=== PATIENT | male | born 1950 | race Caucasian/White ===

== ENCOUNTER 2018-08-06 17:18 | Emergency (ER) | payer BC ==
[2018-08-06 18:42] VITALS: BP 150/68
[2018-08-06] MEDS ORDERED: Albuterol 2.5 MG/3 ML NEB.SOL* (0.083%) INH ONE (18:42)
--- NOTE | 2018-08-06 18:42 | UC ---
General HPI - HPI Summary HPI Summary: PT C/O COUGH WITH CHEST CONGESTION AND SOME ORTIZ. IT BEGAN ABOUT 6 WEEKS AGO WITH A HEAD COLD THAT MOVED INTO HIS CHEST. THE HEAD COLD RESOLVED BUT HE HAS ONGOING CHEST SYMPTOMS. HE DENIES CP, ASTHMA AND COPD - History of Current Complaint Chief Complaint: UCRespiratory Stated Complaint: CONGESTION,SOB,COUGH,ST Time Seen by Provider: 08/06/18 18:34 Hx Obtained From: Patient Onset/Duration: Gradual Onset Timing: Constant Pain Intensity: 0 Associated Signs & Symptoms: Negative: Chest Pain, Fever - Allergy/Home Medications Allergies/Adverse Reactions: Allergies Allergy/AdvReac Type Severity Reaction Status Date / Time No Known Allergies Allergy Verified 08/06/18 17:48 Home Medications: Home Medications NK [No Home Medications Reported] 08/06/18 [History Confirmed 08/06/18] PMH/Surg Hx/FS Hx/Imm Hx - Additional Past Medical History Additional PMH: HEART MURMUR, RETINAL DETACHMENT - Surgical History Surgical History: Yes Surgery Procedure, Year, and Place: Retinal detachement - Family History Known Family History: Positive: Non-Contributory - Social History Alcohol Use: None Substance Use Type: None Smoking Status (MU): Never Smoked Tobacco Review of Systems All Other Systems Reviewed And Are Negative: Yes Constitutional: Positive: Negative Skin: Positive: Negative Eyes: Positive: Negative ENT: Positive: Negative Respiratory: Positive: Shortness Of Breath, Cough Cardiovascular: Positive: Negative Gastrointestinal: Positive: Negative Genitourinary: Positive: Negative Motor: Positive: Negative Neurovascular: Positive: Negative Musculoskeletal: Positive: Negative Neurological: Positive: Negative Psychological: Positive: Negative Physical Exam Triage Information Reviewed: Yes Appearance: Well-Appearing Vital Signs: Initial Vital Signs Temp 97.3 F 08/06/18 17:42 Pulse 81 08/06/18 17:42 Resp 16 08/06/18 17:42 BP 186/59 08/06/18 17:42 Pulse Ox 97 08/06/18 17:42 Vital Signs Reviewed: Yes Eyes: Positive: Conjunctiva Clear ENT: Positive: Pharynx normal, TMs normal. Negative: Nasal congestion, Nasal drainage Neck: Positive: Supple, Nontender, No Lymphadenopathy Respiratory: Positive: Decreased breath sounds, Crackles - faint in RLL, Other: - Mild SOB with speaking Cardiovascular: Positive: RRR, Other: - SOFT SYTOLIC MURMUR OVER BASE Abdomen Description: Positive: Nontender, No Organomegaly, Soft. Negative: Distended, Guarding Bowel Sounds: Positive: Present Musculoskeletal: Positive: ROM Intact, Edema @ - slight at ankles Neurological: Positive: Alert Psychological: Positive: Age Appropriate Behavior Skin Exam: Normal Diagnostics - Radiology No standard instances Radiology Interpretation Completed By: ED Physician - wet read=cm, inflitrate and R pleural effusion Course/Dx - Course Course Of Treatment: REPEAT BP 150/68 MANUAL L ARM. RESULTS OF CXR D/W PT. GIVEN HIS PEDAL EDEMA, DYSPNEA, HEART MURMUR AND ADDED HX OF A POSSIBLE SILENT GA, ER TRANSFER FOR ONGOING EVALUATION AND TX ADVISED. PT REFUSED CITING THIS DOES NOT MAKE SENSE TO HIM. HE ADVISES THAT I SHOULD BE ABLE TO ORDER ANY NEEDED TESTS AN OUT PT. I EXPLAINED THAT WOULD NOT BE AN APPROPRIATE OPTION GIVEN HIS HX, PE AND CURRENT CXR RESULT. PT CONTINUES TO REFUSE ER TRANSFER BECAUSE "IT DOES NOT MAKE SENSE TO ME". I EXPLAINED THAT FAILURE TO GO MAY CAUSE HIM A WORSENING IN HIS CONDITION, DISABILITY OR EVEN . I ALSO OFFERED TO HAVE HIM SPEAK TO DR RIVERA THE ATTENDING HERE; HOWEVER, HE REFUSED AND PROCEEDED TO WALK OUT OF THE BUILDING. HE WOULD NOT WAIT FOR ANY PAPAER WORK. - Diagnoses Provider Diagnosis: Pleural effusion, Dyspnea, Infiltrate noted on imaging study Discharge - Sign-Out/Discharge Documenting (check all that apply): Patient Departure All imaging exams completed and their final reports reviewed: No - Discharge Plan Condition: Stable Disposition: AGAINST MEDICAL ADVICE Referrals: No Primary Care Phys,NOPCP [Primary Care Provider] - - Billing Disposition and Condition Condition: STABLE Disposition: Against Medical Advice - Attestation Statements Provider Attestation: I was available for consult. This patient was seen by the LINDA. The patient was not presented to, seen by, or examined by me. -Marilee
--- NOTE | 2018-08-07 14:16 | UC ---
- Progress Note Progress Note: Radiologist reading of the chest x-ray from August 06, 2018 impression is cardiomegaly pulmonary interstitial edema and small right pleural effusion. Provider interpretation is pleural effusion and infiltrate. Nursing to call the patient and inform him of his pulmonary interstitial edema which could be congestive heart failure and recommend that he be evaluated by medical provider. Course/Dx - Diagnoses Provider Diagnoses: Pleural effusion, Dyspnea, Infiltrate noted on imaging study Discharge - Sign-Out/Discharge Documenting (check all that apply): Patient Departure All imaging exams completed and their final reports reviewed: Yes - Discharge Plan Condition: Stable Disposition: AGAINST MEDICAL ADVICE Referrals: No Primary Care Phys,NOPCP [Primary Care Provider] - - Billing Disposition and Condition Condition: STABLE Disposition: Against Medical Advice
== END 2018-08-06 19:52 | disposition left against medical advice (07) ==
LOC: UCCORT 17:18
DX: J90 Pleural effusion, not elsewhere classified (principal); R06.00 Dyspnea, unspecified; R91.8 Other nonspecific abnormal finding of lung field
CPT/HCPCS: 71046; 99202; G0463